=== PATIENT | female | born 1955 | race American Indian/Alaskan Native ===

== ENCOUNTER 2018-05-09 16:51 | Emergency (ER) | payer OTHER ==
[2018-05-09 17:09] VITALS: BMI 29.8
[2018-05-09 17:13] VITALS: TEMP 97.9
[2018-05-09] MEDS ORDERED: Lidocaine 5% Patch TD STA (18:39)
[2018-05-09] MEDS ORDERED: Morphine 4 mg/ml ISec IM STA ×2 (19:15→19:56)
[2018-05-09 21:02] VITALS: BP 117/68; PULSE 88; RESP 18; O2SAT 99
--- NOTE | 2018-05-09 21:17 | ED PDOC ---
Arrival/HPI - General Chief Complaint: Lower Extremity Problem/Injury Time Seen by Provider: 05/09/18 18:29 Historian: Patient - History of Present Illness Narrative History of Present Illness (Text): 05/09/18 21:10 Beatrice Reyna is a 62 year old female who presents to the Emergency department complaining of left knee pain. Patient states she has a history of chronic left knee pain for the past 3 months/ Patient is currently being treated for her pain by Dr. Ramires in [place]. Patient states she last saw him 2 months ago and got a Cortisone injection in the knee. Patient states since then, her pain has been controlled by Ibuprofen and Oxycodone. Patient states she last took medication at 15:00, states she took Ibuprofen 800mg and Oxydone 2.5mg with no improvement of pain prompting her visit to the Emergency department. Patient denies any history of trauma/injury, swelling, redness, or any other complaints. Symptom Onset: Gradual Symptom Course: Unchanged Activities at Onset: Light Context: Home Past Medical History - Provider Review Nursing Documentation Reviewed: Yes - Infectious Disease Hx of Infectious Diseases: None - Reproductive Menopause: Yes - Endocrine/Metabolic Hx Diabetes Mellitus Type 2: Yes - Psychiatric Hx Substance Use: No - Anesthesia Hx Anesthesia Reactions: No Hx Malignant Hyperthermia: No Family/Social History - Physician Review Nursing Documentation Reviewed: Yes Family/Social History: Unknown Family HX Smoking Status: Never Smoked Hx Alcohol Use: Yes (used to) Hx Substance Use: No Allergies/Home Meds Allergies/Adverse Reactions: Allergies No Known Allergies Allergy (Verified 05/09/18 17:11) Review of Systems - Physician Review All systems were reviewed & negative as marked: Yes - Review of Systems Constitutional: Normal. absent: Fevers Eyes: Normal ENT: Normal Respiratory: Normal. absent: SOB, Cough Cardiovascular: Normal. absent: Chest Pain Gastrointestinal: Normal. absent: Abdominal Pain, Diarrhea, Vomiting Genitourinary Female: Normal. absent: Dysuria, Frequency, Hematuria, Urine Output Changes Musculoskeletal: Arthralgias (+right knee pain, (-) other joint pain). absent: Back Pain, Neck Pain Skin: Normal. absent: Rash Neurological: Normal. absent: Headache, Dizziness Endocrine: Normal Hemo/Lymphatic: Normal Psychiatric: Normal Physical Exam Vital Signs Reviewed: Yes Vital Signs Temp Pulse Resp BP Pulse Ox 05/09/18 21:00 97.9 F 88 18 117/68 99 05/09/18 16:52 97.9 F 72 20 153/94 H 96 Temperature: Afebrile Blood Pressure: Normal Pulse: Regular Respiratory Rate: Normal Appearance: Positive for: Well-Appearing, Non-Toxic, Comfortable Pain Distress: Moderate Mental Status: Positive for: Alert and Oriented X 3 - Systems Exam Head: Present: Atraumatic, Normocephalic Pupils: Present: PERRL Extroacular Muscles: Present: EOMI Conjunctiva: Present: Normal Mouth: Present: Moist Mucous Membranes Neck: Present: Normal Range of Motion Back: Present: Normal Inspection Upper Extremity: Present: Normal Inspection, Normal ROM. No: Cyanosis, Edema Lower Extremity: Present: Normal Inspection, NORMAL PULSES, Tenderness (+mild tenderness to the L knee), Neurovascularly Intact, Capillary Refill < 2 s. No: Edema, Normal ROM (+Limited ROM of L knee secondary to pain), Swelling, Erythema, Temperature Abnormalties Neurological: Present: GCS=15, CN II-XII Intact, Speech Normal Skin: Present: Warm, Dry, Normal Color. No: Rashes Psychiatric: Present: Alert, Oriented x 3, Normal Insight, Normal Concentration Medical Decision Making ED Course and Treatment: 05/09/18 21:11 Impression: 62 year old female complaining of chronic left pain. Plan: -- Lidoderm -- Morphine -- Zofran -- XR Left Knee -- Reassess and disposition Progress Notes: XR L knee : +decrease in joint space, mild effusion with mild djd. XR results d/w the patient. On re-evaluation, patient reports improvement of pain, she is laying in bed comfortably in no acute distress. She is smiling and is in good spirits. Ag wrap and knee immobilizer applied. Advised to follow up with her ortho or ortho referral provided in 1-2 days without fail. Advised to take medication as prescribed. Return to the emergency room at any time for any new or worsening symptoms. Patient states she fully agrees with and understands discharge instructions. States that she agrees with the plan and disposition. Verbalized and repeated discharge instructions and plan. I have given the patient opportunity to ask any additional questions. - RAD Interpretation Radiology Orders: 05/09/18 19:16 KNEE LEFT 2 VIEWS (AP & LAT) [RAD] Stat - Medication Orders Current Medication Orders: Discontinued Medications Lidocaine (Lidoderm) 1 ea TD STAT STA Stop: 05/09/18 18:40 Last Admin: 05/09/18 19:18 Dose: 1 ea MAR Transdermal Patch Site Document 05/09/18 19:18 OCS (Rec: 05/09/18 19:18 [id number] Transdermal Patch Site Transdermal Patch Site Left Thigh Morphine Sulfate (Morphine) 6 mg IM STAT STA Stop: 05/09/18 19:57 Last Admin: 05/09/18 20:49 Dose: 6 mg MAR Pain Assessment Document 05/09/18 20:49 OCS (Rec: 05/09/18 20:49 [id number][facility] Pain Reassessment Is this a pain reassessment? No Sleep Is patient sleeping during reassessment? No Presence of Pain Presence of Pain Yes Pain Scale Used Protocol: PSCALES Pain Scale Used Numeric Location Left, Right or Bilateral Left Upper or Lower Lower Pain Location Body Site Leg Description Description Constant Intensity of Pain at present 10 Pain Behavior Irritability Facial Grimacing Aggravating Factors ADL's IM Administration Charges Document 05/09/18 20:49 OCS (Rec: 05/09/18 20:49 [id number]) Injection Site MAR Injection Site Left Arm Charges for Administration # of IM Administrations 1 Ondansetron HCl (Zofran Odt) 4 mg PO STAT STA Stop: 05/09/18 19:16 Last Admin: 05/09/18 20:49 Dose: 4 mg - PA / EMPLOYEE COMMUNICATIONS MANAGER / Resident Statement MD/DO has reviewed & agrees with the documentation as recorded. - Scribe Statement The provider has reviewed the documentation as recorded by the Shashank Glass Provider Scribe Attestation: All medical record entries made by the Jamesibnasim were at my direction and personally dictated by me. I have reviewed the chart and agree that the record accurately reflects my personal performance of the history, physical exam, medical decision making, and the department course for this patient. I have also personally directed, reviewed, and agree with the discharge instructions and disposition. Disposition/Present on Arrival - Present on Arrival Any Indicators Present on Arrival: No History of DVT/PE: No History of Uncontrolled Diabetes: No Urinary Catheter: No History of Decub. Ulcer: No History Surgical Site Infection Following: None - Disposition Have Diagnosis and Disposition been Completed?: Yes Diagnosis: Left knee pain Disposition: HOME/ ROUTINE Disposition Time: 21:00 Patient Plan: Discharge Condition: STABLE Discharge Instructions (ExitCare): Chronic Knee Pain Additional Instructions: Thank you for letting us take care of you today. You were treated for chronic L knee pain. The emergency medical care you received today was directed at your acute symptoms. If you were prescribed any medication, please fill it and take as directed. It may take several days for your symptoms to resolve. Return to the Emergency Department if your symptoms worsen, do not improve, or if you have any other problems. Please contact your doctor in 2 days for re-evaluation and follow up / or call one of the physicians/clinics you have been referred to that are listed on the Patient Visit Information form that is included in your discharge packet. Bring any paperwork you were given at discharge with you along with any medications you are taking to your follow up visit. Our treatment cannot replace ongoing medical care by a primary care provider (PCP) outside of the emergency de partment. Thank you for allowing the [facility] team to be part of your care today. If you had an X-Ray : A Radiologist will review the ED reading if any change in treatment is needed we will contact you. Prescriptions: Lidocaine 5% [Lidoderm] 1 ea TD Q12H PRN #20 patch PRN Reason: Pain, Moderate (4-7) oxyCODONE/Acetaminophen [Percocet 5/325 mg Tab] 1 ea PO TID PRN #15 tab PRN Reason: Pain, Moderate (4-7) Referrals: Julian Rod MD [Primary Care Provider] - Follow up with primary Francois Alamo DO [Staff Provider] - Follow up with primary Forms: [employer] (Gu[place]ian), WORK NOTE
--- NOTE | 2018-05-10 09:20 | RAD ---
Date of service: 05/09/2018 PROCEDURE: Left Knee Radiographs. HISTORY: Pain. COMPARISON: None. FINDINGS: BONES: No acute fracture or destructive bony lesion identified. JOINTS: Limited joint space narrowing seen the medial and lateral femorotibial joint compartments with a pattern patellofemoral compartment similarly affected. Minimal osteophytic development is seen at the medial lateral compartments as well. Limited cortical sclerosis throughout all 3 joint compartments. No subluxation or dislocation. JOINT EFFUSION: None. OTHER FINDINGS: None. IMPRESSION: [id number] tricompartmental osteoarthritis. No acute fracture, dislocation or subluxation.
== END 2018-05-09 21:44 | disposition home or self-care (01) ==
LOC: ED 16:51
DX: M25.562 Pain in left knee (principal); E11.9 Type 2 diabetes mellitus without complications
CPT/HCPCS: 73560; 96372; 99283; J2270